=== PATIENT | male | born 1935 | race Caucasian/White ===

== ENCOUNTER 2024-05-09 07:05 | Emergency (ER) | payer MEDICARE, BC, SELFPAY ==
[2024-05-09 07:09] VITALS: BP 156/71
--- NOTE | 2024-05-09 08:15 | ED.GENMED ---
History of Present Illness
General
Chief Complaint: Fall
Source: patient, spouse and family
Exam Limitations: none
Time Seen by Provider: 05/09/24 07:44
Nursing documentation reviewed up to this point in time: agreed with
History of Present Illness
History of Present Illness:
88-year-old male with a past medical history of hypertension, hyperlipidemia, CAD status post CABG who presents to the emergency department with his and daughter for evaluation of left arm injury after a fall. Patient had a minor trip and fall
and braced himself with his left hand on a metal garbage bin. Sustained a laceration to the left forearm and bruising to the left wrist but no other injuries. Denies any head strike or loss of consciousness. He denies any headache, neck pain,
back pain, chest pain, abdominal pain. Denies any pain in his legs. He denies any other complaints. He is on Eliquis.
Review of Systems
Review of Systems
All Other Systems: ROS reviewed and negative except as documented in HPI and ROS
Respiratory: Denies trouble breathing
Cardiac: Denies chest pain or syncope
ABD/GI: Denies abdominal pain, nausea or vomiting
: Denies flank pain
Musculoskeletal: Reports joint pain (Wrist/forearm pain); Denies neck pain or back pain
Neurological: Denies headache, weakness or numbness
Phy Exam
Physical Exam
Physical Exam:
General: Awake, alert, oriented x3; no acute distress
Head: Normocephalic, atraumatic
Eyes: Conjunctiva normal, EOMI, pupils equal round and reactive to light bilaterally
Throat: Airway intact, tongue atraumatic
Neck: Trachea midline, no cervical spine tenderness
Back: No signs of trauma to the back or flank, no tenderness of the thoracic or lumbar spine
Lungs: Clear to auscultation bilaterally, no wheezing, rales, rhonchi
Heart: Regular rate; no chest wall tender
Abd: Soft, non distended, nontender
Neuro: No gross deficits
Skin: Patient has a 4 cm linear laceration left volar forearm; no foreign body, no exposed tendon
Extremities: Laceration to the forearm, bruising to the left wrist/forearm but good range of motion of the left wrist, no tenderness of the hand, elbow, shoulder on the left and rest of extremities appear essentially atraumatic (old bruise on left
upper arm nontender)
Scores
Heart Failure Risk
Heart Failure Risk Score: Not Applicable
Heart Score for Chest Pain Patients
STEMI patient?: Not applicable
Withdrawal Assessment of Alcohol
Withdrawal Assessment Completed?: Not applicable
Course
Orders/Labs/Results
Orders:
Orders
05/09/24 07:47
Tetanus/Diphth/Acelpertussis [Adacel] 0.5 ml IM .ONCE ONE
05/09/24 07:52
CR Wrist - Left Min 3 Views Urgent
Comment:
Reason For Exam: left wrist brusing and pain s/p FOOSH
Vital Signs
Initial and Last Documented VS:
Initial Vital Signs
Temp Pulse Resp BP Pulse Ox
36.6 C 78 16 156/71 94
05/09/24 07:09 05/09/24 07:09 05/09/24 07:09 05/09/24 07:09 05/09/24 07:09
Last Documented Vital Signs
Temp Pulse Resp BP Pulse Ox
36.6 C 78 16 156/71 94
05/09/24 07:09 05/09/24 07:09 05/09/24 07:09 05/09/24 07:09 05/09/24 07:09
Procedures
Laceration Closure
Left Arm:
Status of Wound: clean
Size of Wound in cm: 4
Description of Wound Edges: ragged
Preparation: cleaned with saline
Anesthesia: 1% Lidocaine with epi
Revision/Debridement: minor revision
Wound exploration: explored to base- no FB and no tendon involvement
Type of Closure: layered closure
Skin Closure Material: 4-0 nylon (x5) and other (4-0 monocryl x2)
Number of sutures: 7
MDM/Problems Addressed
Differential Diagnosis Includes:
Lacerations; must also consider fracture left wrist given bruising and tenderness
MDM/Problems Addressed:
88-year-old male presents for evaluation after a trip and fall with left wrist injury. No other injuries and no reported head strike. He is on Eliquis. Vitals and exam as above. Check x-ray of the left wrist. Update tetanus. Irrigate and
repair laceration. Considered CT head but with no reported head strike, no signs of head trauma, no headache and normal mental status with no nausea or vomiting in my judgment no indication for emergent CT head at this point in time.
X-ray of the wrist reviewed by me shows no acute fracture and no foreign body. Laceration repaired as documented procedure note. Stable for discharge. Spoke with patient and daughter about return precautions and follow-up plan.
Acute Exacerbation and/or Progression of Chronic Illness:
Acutely hypertensive without signs or symptoms of hypertensive emergency no indication for emergent antihypertensives at this point
Acute Exacerbation and/or Progression of Chronic Illness: HTN
*Radiology
Radiology exam reviewed: preliminary read by ED provider
*Pulse Oximetry
Patient hypoxic: no
*Critical Care Note
Total Time (30-74mins, 75-104mins- exclusive of procedures): Not Applicable
Data Reviewed
Source: patient, spouse and family
ED Attending Note
-
Portions of this chart may have been created with voice recognition software.� Occasional wrong word or��sound alike� substitutions may have occurred due to the inherent limitations of voice recognition software.
Discharge Plan
Departure
Patient Disposition: Home (Routine Discharge)
Date of Disposition: 05/09/24
Time of Disposition: 09:32
Patient with high blood pressure during this ER visit?: Yes
Discharge Problem:
Contusion of left wrist, Forearm laceration
Instructions: Contusion (DC), Laceration Repair With Stitches (DC)
Referrals:
Goldie Moore MD [Family Provider] - Follow up in 5-7 days
Activity Restrictions/Additional Instructions:
He was seen in the emergency room and found to have a laceration on your forearm. It was repaired with stitches. You must have the stitches removed in 1 week. You should follow-up with your primary doctor or you can return here to have your
stitches removed. If you notice signs of infection please return immediately.
Thank you for visiting the Emergency Department at [facility].
1. Please schedule a follow up appointment as directed. Call first thing tomorrow morning to make an appointment.
2. If indicated, please take your medications as instructed and indicated on discharge paperwork.
3. If any of your symptoms do not improve, or persist, or become more severe within 6-12 hours, please return to the emergency department for further care.
4. Please return to the emergency department if you develop a headache, neck pain/stiffness, fever greater than 100.4F, chest pain, shortness of breath, persistent nausea, vomiting, slurred speech, difficulty walking, numbness/tingling, weakness,
signs of infection or any other symptoms that are worrisome to you.
Please call [phone] if you have any questions.
Interventions
Interventions:
*Risk Screen - Suicide Last Done: 05/09/24 07:14
*Neglect/Abuse Screening Last Done: 05/09/24 07:14
ED- Fall Risk Assessment Last Done: 05/09/24 08:42
ED-Musculoskeletal Assessment Last Done: 05/09/24 08:42
ED- Neurological Assessment Last Done: 05/09/24 08:42
ED-Skin Assessment Last Done: 05/09/24 08:42
Discharge Date and Time
Print Language: [id number]
[2024-05-09] MEDS: ADACEL 0.5 ML IM (08:19)
[2024-05-09 09:57] VITALS: BP 124/75
== END 2024-05-09 09:58 | disposition home or self-care (01) ==
LOC: EMR 07:05
PROVIDERS: EMERGENCY PHYSICIAN Emergency Medicine; FAMILY PHYSICIAN Internal Medicine Geriatric Medicine
DX: S60.212A Contusion of left wrist, initial encounter (principal); S51.812A Laceration without foreign body of left forearm, initial encounter; W01.0XXA Fall on same level from slipping, tripping and stumbling without subsequent striking against object, initial encounter; E78.5 Hyperlipidemia, unspecified; I10 Essential (primary) hypertension; I25.10 Atherosclerotic heart disease of native coronary artery without angina pectoris; Z95.1 Presence of aortocoronary bypass graft; Z79.01 Long term (current) use of anticoagulants; Z23 Encounter for immunization
CPT/HCPCS: 90471; 12032; 99283; 73110; 90715